=== PATIENT | male | born 1940 | race Caucasian/White ===

== ENCOUNTER 2020-03-25 16:24 | Outpatient (REF) | payer OTHER, SELFPAY ==
[2020-03-25 21:46] LABS: TSH 2.05 uIU/mL (0.36-3.74)
== END 2020-03-25 16:44 ==
LOC: LBN 16:24
PROVIDERS: PCP Emergency Medicine; Visit Provider Emergency Medicine
DX: E03.9 Hypothyroidism, unspecified (principal)
CPT/HCPCS: 84443

== ENCOUNTER 2022-01-13 03:19 | Outpatient (CLI) | payer MEDICARE, SELFPAY ==
[2022-01-13 12:48] LABS: Anion Gap 5.1 mmol/L (3-11); BUN 17 mg/dL (7-18); CO2 29.9 mmol/L (21.0-32.0); CREATININE 0.9 mg/dL (0.70-1.30); Calcium 8.6 mg/dL (8.5-10.1); Chloride 107 mmol/L (98-107); Estimated GFR 85.27 (mL/min/1.73m2); Glucose 104 mg/dL (74-106); Sodium 142 mmol/L (136-145)
[2022-01-13 13:05] LABS: FREE T4 0.79 ng/dL (0.76-1.46)
== END 2022-01-13 03:20 | disposition home or self-care (01) ==
LOC: LOS 03:19
PROVIDERS: PCP Family Medicine; Visit Provider Family Medicine
DX: E03.9 Hypothyroidism, unspecified (principal); I49.5 Sick sinus syndrome
CPT/HCPCS: 36415; 80048; 84439; 84443

== ENCOUNTER 2022-09-08 19:29 | Emergency (ER) | payer MEDICARE, SELFPAY ==
[2022-09-08 19:33] VITALS: BP 150/77; PULSE 108; RESP 16; TEMP 37.8; O2SAT 96
--- NOTE | 2022-09-08 19:33 | ED.GENADUL_ITS ---
Discharge Plan Disposition Patient Disposition: Home Discharge Details Clinical Impression: Community acquired pneumonia, Hypocalcemia, Prolonged QT interval Primary Care Provider: Zachary Montgomery ED Provider: Tavo Gould [place] Meds and New Rx's Prescriptions: New amoxicillin-pot clavulanate 875-125 mg tablet 1 tab PO BID 7 Days Qty: 14 0RF Continued benzonatate 100 mg capsule 100 mg PO TID PRN (Reason: cough) 7 Days Qty: 20 0RF levothyroxine [Levo-T] 75 mcg tablet 75 mcg PO DAILY Qty: 90 3RF Discharge Instructions Instructions: Community Acquired Pneumonia (ED) Additional Instructions: Please read all of the information that accompanies these instructions. You wer e seen in the emergency department for your cough and shortness of breath. You are found to have signs of an early pneumonia for which you are receiving antibiotics that you should take as directed. Please schedule an appointment with your primary care provider later this week. Please return to the emergency department if develop worsening shortness of breath chest pain or any difficulty breathing. Discharge Data Discharge Date/Time-TO BE ENTERED AT DEPARTURE: 09/08/22 22:43 Medical Decision Making This is an overall very well-appearing tachycardic but normothermic and not hypotensive 81-year-old male with 2-week history of cough and fevers at home with presentation concerning for sepsis. Given tachycardia will obtain 2 sets of blood cultures, check a lactate, and treat empirically with 2 g of ceftriaxone. I am not concerned for MRSA so will defer vancomycin at this point time. Patient is not a smoker and has no history of reactive airway disease nor COPD so we will defer steroids. Patient is not an alcoholic nor does he have a history of cirrhosis. Patient has had no lower extremity swelling nor unintentional weight gain brayan history of CHF so I am not concerned for acute CHF. He has no chest pain to suggest ACS however based on his tachycardia and history of atrial fibrillation will obtain a twelve-lead ECG. Suspect that his tachycardia is driven by his elevated normal temperature. We will treat with 500 cc of crystalloid and 1 g of oral acetaminophen. No pain out of proportion to suggest necrotizing soft tissue infection. If labs are reassuring anticipate patient will be appropriate for discharge with outpatient follow-up. He has no obviously abnormal breath sounds to suggest bacterial pneumonia. Based on his overall well appearance he certainly could have a viral pneumonia. He was swabbed last week for COVID which was negative. We will reswab now. No dysuria nor frequency to suggest UTI. No history of trauma to suggest pneumothorax. 10:15 PM COVID, influenza, and RSV negative. Basic metabolic panel with very mild anion gap. Normal creatinine. Very mild hyperglycemia but normal bicarbonate, not consistent with DKA. Very mild hypocalcemia. QTc prolonged at 500 ms. Normal lactate. CBC showing leukocytosis and normocytic anemia. No thrombocytopenia. X-ray read as possible left basilar opacity. We will treat with amoxicillin clavulanic acid. Patient has a port score of 82 making him appropriate for outpatient. He is eager for discharge. I have asked health community director to have the patient seen in the next 2 days for reassessment by his primary care provider in the setting of community-acquired pneumonia. Repeat heart rate 88. His QTc was prolonged on ECG and I repleted his very mild hypocalcemia. He was not hypokalemic. Given that he is tolerating p.o. and not on any outpatient diuretics which could make him at risk for hypokalementia I feels appropriate for discharge. Furthermore he is not on any medications which could prolong his QT. Has not had any syncopal episodes to suggest torsades. He had no dysrhythmias on telemetry in the ED. I did not prescribe a fluoroquinolone given prolonged QT. 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 History obtained from an outside historian: Patient's External record review: [facility] [place] EMR Diagnostic interpretations performed by me: [Per my independent interpretation chest x-ray shows:] question LLQ infilitrate Per my independent interpretation EKG shows: Normal sinus rhythm at a rate of 96 with right bundle branch block and left anterior fascicular block. No prior for comparison. QTc prolonged at 500 ms. Left axis deviation. No acute injury pattern. No prior for comparison. Medications: Ceftriaxone and acetaminophen and IV fluids. Social determinants of health affecting disposition: N/A Management discussed with: N/A Treatment/interventions considered: Hospitalization but deferred in favor of an empiric trial of expectant outpatient managment Response to therapies provided: Tanana improved in the ED HPI General Date/Time Provider Initiated Documentation: 09/08/22 19:32 . HPI Narrative: This is an 81-year-old male with a history of aortic stenosis and WPW now in the emergency department in the setting of cough and fever. Patient reportedly has had a cough for the past 2 weeks since traveling and visiting family domestically. He was seen 5 days ago at urgent care where he was swabbed negative for COVID. He was given a prescription for Mucinex and discharged. He says his cough is dry and nonproductive. This afternoon he developed a fever up to 102 ?F. He is not a smoker. He has no history of liver disease nor daily alcohol use. He has had no unintentional weight gain nor any leg swelling. He has a PCP follow-up appointment next week. He is not having chest pain nausea vomiting abdominal pain dysuria nor frequency. Related Data Home Medications Medication Instructions Recorded Confirmed levothyroxine 75 mcg tablet 75 mcg PO DAILY #90 tabs 06/29/22 09/08/22 (Levo-T) benzonatate 100 mg capsule 100 mg PO TID PRN cough 7 days #20 09/04/22 09/08/22 caps amoxicillin 875 mg-potassium 1 tab PO BID 7 days #14 tabs 09/08/22 clavulanate 125 mg tablet Previous Rx's Medication Instructions Recorded levothyroxine 75 mcg tablet 75 mcg PO DAILY #90 tabs 06/29/22 (Levo-T) benzonatate 100 mg capsule 100 mg PO TID PRN cough 7 days #20 09/04/22 caps amoxicillin 875 mg-potassium 1 tab PO BID 7 days #14 tabs 09/08/22 clavulanate 125 mg tablet Allergies Allergy/AdvReac Type Severity Reaction Status Date / Time No Known Allergies Allergy Verified 09/08/22 19:38 [facility] All Active Problems (Updated 09/09/22 @ 00:14 by Tavo Gould MD) Community acquired pneumonia (Acute) Hypocalcemia (Acute) Prolonged QT interval (Acute) Aortic stenosis (Chronic) Moderate, followed by cardiology at [place]-echocardiogram at [place] results not available SVT (supraventricular tachycardia) (Chronic) History of recurrent very brief, otherwise asymptomatic episodes, not requiring treatment-followed by cardiology-[facility] BCC (basal cell carcinoma of skin) (Acute) 2017-scalp, status post Mohs surgery at [facility] per patient Mcfvw-Ypeifzvui-Zythm pattern (Acute 01/28/92) Remote history noted on cardiology notes Tubular adenoma of colon (Acute 03/15/16) 2017 Retention of urine (Acute 01/27/05) self-caths Recurrent urinary tract infection (Acute) Raised prostate specific antigen (Acute 01/28/00) BX-prostatitis Lipoma of back (Acute 08/14/14) Large lipoma, left thoracic back about 10 cm in size Hypothyroidism (Acute 08/14/14) Hydrocele (Acute) Hearing loss (Acute) Basal cell carcinoma (BCC) in situ of skin (Acute 07/06/17) Atrial fibrillation (Acute 08/14/14) Actinic keratosis (Acute) Medical History Family history of malignant neoplasm of prostate Surgical History Colonoscopy - MAC (03/15/16) 2000 IMPROVEMENT NURSE ID (11/20/13) SERIAL# [id number]; MODEL# [id number] Prostate Biopsy (~2000) Repair of inguinal hernia (~2009) LEFT Family History Mother No problems noted. Father Personal history of malignant neoplasm Sister No problems noted. Brother No problems noted. FAMILY HISTORY AA (alcohol abuse) Personal history of malignant neoplasm prostate Social History Smoking/Tobacco Use Status: Former Tobacco Use tobacco type: cigarettes and pipe Second Hand Exposure: Yes Smoking risk assessment performed?: Yes Alcohol Intake: current Alcohol Intake frequency: a few times a week Alcohol type: beer Drug use: Socially Caregiver/Support person: No Household members: spouse Housing: house Communication Needs: Hard of Hearing Do you need help understanding health information?: Rarely Pets and animals: Yes Pets and animals: dog(s) Sexually active: Yes Do you think of yourself as: straight/heterosexual Current gender identity: male What is your relationship status?: How often do you talk on the phone with friends or family?: three or more times per week How often do you get together with friends or relatives?: once per week How often do you attend quaker or denominational services?: 1-3 times per year Do you belong to any clubs or organized social groups?: no Panel score (0-1 are the most socially isolated patients): 2 What type of physical activity do you participate in: aerobic and other Details: Tennis,pickleball, golfing,biking Duration: 45-60 minutes/day Frequency: 1-2 times per week Luci/Synagogue: No preference Special luci needs: No Seatbelt use: always Helmet use: Yes Helmet use: sometimes Drive intox or ride w/intox armored car driver: No Exam Narrative Exam Narrative: General: Well-appearing in no acute distress speaking in complete sentences. Head: Normocephalic, atraumatic. Eye: Extraocular eye movements intact. No conjunctival injection. No scleral icterus. Ear, nose, mouth, throat: Grossly normal inspection. Normal voice, handling secretions normally. Neck: Trachea midline. Cardiovascular: Well-perfused distal extremities.Rapid regular rate and rhythm. Respiratory: Nonlabored respiration. Clear lungs bilaterally. Gastrointestinal: Nondistended abdomen. Musculoskeletal: No significant lower extremity pitting edema. Moving all 4 extremities spontaneously. Skin: Normal for age and race, grossly normal temperature and turgor. No acute rash. Neurologic: Alert and appropriate, no apparent acute deficits. Psychiatric: Mood and manner are appropriate. Grooming and personal hygiene are appropriate.
--- NOTE | 2022-09-08 19:45 | RT.EKG_ITS ---
APPROVED REPORT Exam: Resting ECG Reason for Exam: Tachycardia Patient Location: E HR:96 bpm ECG Measurements Heart Rate 96 AXIS LA 191 P 84 QRSd 146 QRS -60 QT 395 T 62 QTc 500 Conclusion Sinus rhythm...normal P axis, V-rate 60- 99 RBBB and LAFB...QRSd >120mS, axis(-40,240) Probable left ventricular hypertrophy...(RaVL+SV3)xQRSd >280 Normal sinus rhythm at a rate of 96 with right bundle branch block and left anterior fascicular block . No prior for comparison. QTc prolonged at 500 ms. Left axis deviation. No acute injury pattern. No prior for rebecca
[2022-09-08 20:08] LABS: Lactate 0.8 mmol/L (0.6-1.4)
[2022-09-08 20:09] LABS: Abs Immature Grans 0.06 10^3/uL (0.0-0.06); Absolute Lymphocyte Count 2.24 10^3/uL (1.2-3.4); Basophils % 0.1; Eosinophils % 0.6; HCT 35.9 % (40.0-50.0); HGB 12.4 g/dL (13.5-17.5); Immature Grans % 0.4; Lymphocytes % 15.6; MCH 28.6 pg (27.0-33.0); MCHC 34.5 % (32.0-36.0); MCV 83 fL (80-95); MPV 10.3 fL (8.0-11.0); Monocytes % 5.6; Neutrophils % 77.7; Platelet Count 153 10^3/uL (130-400); RBC 4.34 10^6/uL (4.36-5.78); RDW 12.5 % (11.8-14.1); RDW-SD 38.3 fL; WBC 14.37 10^3/uL (4.4-10.8)
[2022-09-08 20:10] LABS: Absolute Basophil Count 0.01 10^3/uL (0.0-0.2); Absolute Eosinophil Count 0.09 10^3/uL (0.0-0.7); Absolute Neutrophil Count 11.17 10^3/uL (1.2-6.7)
[2022-09-08] MEDS: cefTRIAXone 2 GM/50 ML BAG IVPB (20:12)
[2022-09-08] MEDS: Acetaminophen 500 MG TAB 1000 MG PO (20:13)
[2022-09-08] MEDS: Normal Saline 500 ML IV (20:14)
[2022-09-08 20:25] LABS: Anion Gap 11.2 mmol/L (3-11); BUN 17 mg/dL (7-18); CO2 22.8 mmol/L (21.0-32.0); CREATININE 0.9 mg/dL (0.70-1.30); Calcium 8.2 mg/dL (8.5-10.1); Chloride 103 mmol/L (98-107); Estimated GFR 85.27 (mL/min/1.73m2); Glucose 119 mg/dL (74-106); Potassium 3.7 mmol/L (3.5-5.1); Sodium 137 mmol/L (136-145)
[2022-09-08 20:48] LABS: COVID-19 PCR Negative (Negative); Influenza A PCR Negative (Negative); Influenza B PCR Negative (Negative); RSV PCR Negative (Negative)
[2022-09-08 20:50] LABS: Source Nasopharynx
--- NOTE | 2022-09-08 21:00 | DI.RAD_ITS ---
Exam(s) XR CHEST 2V PA LATERAL EXAM: XR CHEST 2V PA LATERAL CLINICAL HISTORY: Cough. TECHNIQUE: 2D digital imaging was performed. COMPARISON: No exams were available for comparison FINDINGS: 2 views: Anterior left chest wall cardiac loop detector evident Mild pectus. Heart size upper normal. Mediastinum not widened. Right lung is clear. Mild increased markings noted in the posterior basal segment of the left lower lobe. No pleural effusions. No pulmonary edema. No pneumothorax. No fractures. IMPRESSION: There appears to be mild infiltrate in the posterior basal segment of the left lower lobe. No obviou s pleural effusions. DATA REPOSITORY: RADIATION DOSE DELIVERED:
--- NOTE | 2022-09-08 21:33 | DI.VRAD_ITS ---
PROCEDURE INFORMATION: Exam: XR Chest Exam date and time: 09/08/2022 9:21 PM Age: 81 years old Clinical indication: Cough TECHNIQUE: Imaging protocol: Radiologic exam of the chest. Views: 2 views. COMPARISON: No relevant prior studies available. FINDINGS: Lungs: Question mild left basilar opacity. Pleural spaces: No pleural effusion. No pneumothorax. Heart/Mediastinum: Tortuous aorta. No cardiomegaly. Bones/joints: Unremarkable. IMPRESSION: Question mild left basilar opacity which may represent subsegmental atelectasis versus developing pneumonia Dictated and Authenticated by: Rachid De Los Santos MD. Ordering:SHEILA Vo MD
[2022-09-08 22:43] VITALS: PULSE 88; O2SAT 96
--- NOTE | 2022-09-08 22:53 | NUR.NOTE ---
Pt put on care management for reassess for pneumonia within 1-2 days per ED provider Mary Ann Nursing Note:
== END 2022-09-08 22:43 | disposition home or self-care (01) ==
PROVIDERS: Emergency Provider Emergency Medicine; PCP Family Medicine
DX: J18.9 Pneumonia, unspecified organism (principal); E83.51 Hypocalcemia; I35.0 Nonrheumatic aortic (valve) stenosis; I45.19 Other right bundle-branch block; I44.4 Left anterior fascicular block; Z79.899 Other long term (current) drug therapy
CPT/HCPCS: 80048; 87040; 87637; 93005; 96365; 99284; 71046; 83605; 85025; 93010; 99283

== ENCOUNTER 2022-11-17 03:47 | Outpatient (CLI) | payer MEDICARE, SELFPAY ==
[2022-11-17 12:46] LABS: TSH (W/Ref FT4) 2.85 uIU/mL (0.36-3.74)
== END 2022-11-17 03:48 | disposition home or self-care (01) ==
LOC: LOS 03:47
PROVIDERS: PCP Family Medicine; Visit Provider Family Medicine
DX: E03.9 Hypothyroidism, unspecified (principal)
CPT/HCPCS: 36415; 84443

== ENCOUNTER 2023-09-20 09:56 | Outpatient (CLI) | payer MEDICARE, SELFPAY ==
[2023-09-20 13:34] LABS: FREE T4 0.88 ng/dL (0.76-1.46)
[2023-09-20 19:37] LABS: HIV-1/2 Ag & Ab Screen Negative (Negative); Hepatitis C Ab w Rflx HCV PCR Negative (Negative)
[2023-09-20 19:39] LABS: HBs Antibody, Quant <3.1 mIU/mL (See Note); Hep B Surface Ab Negative (See Note); Hepatitis B Core Antibody Negative (Negative); Hepatitis B Surface Antigen Negative (Negative)
== END 2023-09-20 09:57 | disposition home or self-care (01) ==
LOC: LOS 09:56
PROVIDERS: PCP Family Medicine; Visit Provider Family Medicine
DX: Z11.59 Encounter for screening for other viral diseases (principal); Z00.00 Encounter for general adult medical examination without abnormal findings; E03.9 Hypothyroidism, unspecified
CPT/HCPCS: 36415; 86704; 86706; 86803; 87340; 87389; 84439; 84443

== ENCOUNTER 2024-09-20 10:43 | Outpatient (CLI) | payer MEDICARE, SELFPAY ==
[2024-09-20 12:27] LABS: Abs Immature Grans 0.02 10^3/uL (0.0-0.06); HCT 40.0 % (40.0-50.0); HGB 13.3 g/dL (13.5-17.5); Immature Grans % 0.2 %; MCH 29.1 pg (27.0-33.0); MCHC 33.3 % (32.0-36.0); MCV 88 fL (80-95); MPV 11.2 fL (8.0-11.0); Platelet Count 154 10^3/uL (130-400); RBC 4.57 10^6/uL (4.36-5.78); RDW 13.4 % (11.8-14.1); RDW-SD 42.5 fL; WBC 8.13 10^3/uL (4.4-10.8)
[2024-09-20 12:49] LABS: TSH (W/Ref FT4) 1.56 uIU/mL (0.36-3.74)
== END 2024-09-20 10:44 | disposition home or self-care (01) ==
LOC: LOS 10:43
PROVIDERS: PCP Family Medicine; Referring Provider Family Medicine; Visit Provider Family Medicine
DX: E03.9 Hypothyroidism, unspecified (principal); D64.9 Anemia, unspecified
CPT/HCPCS: 36415; 84443; 85025

== ENCOUNTER 2025-01-03 11:12 | Emergency (ER) | payer MEDICARE, SELFPAY ==
[2025-01-03 11:17] VITALS: BP 179/94; PULSE 56; RESP 20; TEMP 36.5; O2SAT 96
[2025-01-03 11:21] VITALS: BP 179/94; PULSE 56; RESP 20; TEMP 36.5; O2SAT 96
[2025-01-03] MEDS: fentaNYL 100 MCG/2 ML VIAL 50 MCG IVP (11:57)
[2025-01-03 12:03] LABS: Abs Immature Grans 0.02 10^3/uL (0.0-0.06); HCT 42.9 % (40.0-50.0); HGB 14.3 g/dL (13.5-17.5); Immature Grans % 0.2 %; MCH 28.6 pg (27.0-33.0); MCHC 33.3 % (32.0-36.0); MCV 86 fL (80-95); MPV 10.9 fL (8.0-11.0); Platelet Count 146 10^3/uL (130-400); RBC 5.00 10^6/uL (4.36-5.78); RDW 13.5 % (11.8-14.1); RDW-SD 42.0 fL; WBC 8.55 10^3/uL (4.4-10.8)
[2025-01-03 12:12] LABS: Lipase 37 U/L (<78)
[2025-01-03 12:16] LABS: ALT 25 U/L (16-63); AST 22 U/L (15-37); Albumin 3.9 g/dL (3.4-5.0); Alkaline Phosphatase 85 U/L (46-116); Anion Gap 6.3 mmol/L (3-11); BUN 14 mg/dL (7-18); Bilirubin, Total 0.7 mg/dL (0.2-1.0); CO2 30.7 mmol/L (21.0-32.0); Calcium 9.3 mg/dL (8.5-10.1); Chloride 106 mmol/L (98-107); Glucose 95 mg/dL (74-106); Potassium 4.2 mmol/L (3.5-5.1); Sodium 143 mmol/L (136-145); Total Protein 7.1 g/dL (6.4-8.2)
[2025-01-03 12:27] LABS: Glucose Negative (Negative)
[2025-01-03 12:33] LABS: C & S Indicated? No; RBC Negative HPF (0-2)
--- NOTE | 2025-01-03 13:30 | DI.US_ITS ---
Exam(s) US HERNIA EXAM: US HERNIA CLINICAL HISTORY: inguinal hernia, post reduction. TECHNIQUE: Ultrasound was performed using standard protocol. COMPARISON: No exams were available for comparison FINDINGS: Sonographic assessment utilizing grayscale and color Doppler imaging was performed and targeted to the area of clinical concern. There is a right inguinal hernia present. It appears to contain both fluid and bowel loops. The hernia sac measures 4.5 x 1.4 x 3.8 cm. IMPRESSION: Right inguinal hernia containing both fluid in bowel loops. DATA REPOSITORY:
--- NOTE | 2025-01-03 15:18 | W.ED.GENAD ---
Discharge Plan Disposition Patient Disposition: Home Condition: Stable Discharge Details Clinical Impression: Inguinal hernia Primary Care Provider: Zachary Montgomery ED Provider: France Reese Home Meds and New Rx's Prescriptions: Continued levothyroxine [Levo-T] 75 mcg tablet 75 mcg PO DAILY Qty: 90 3RF Discharge Instructions Instructions: Hernia Repair (DC), Groin Hernia (DC) Additional Instructions: avoid any heavy lifting or straining avoid constipation please follow-up with surgery regarding your hernia, a referral has been placed if you develop reoccurrence of painful hernia, you may try to reduce at home and return immediately if you are unsuccessful Stand Alone Forms: Portal Information Referrals: Long Maldonado MD [ [facility] STAFF PHYSICIAN, Surgery] HPI General Date/Time Provider Initiated Documentation: 01/03/25 11:32. HPI Narrative: This 84-year-old gentleman with history of WPW SVT aortic stenosis hypothyroidism presents with report of right pelvic pain. He states that the pain started this morning when he got out of bed. He has a history of an inguinal hernia on the right and also has a previously repaired left inguinal hernia. The right inguinal hernia has Related Data Home Medications Medication Instructions Recorded Confirmed levothyroxine 75 mcg tablet 75 mcg PO DAILY #90 tabs 09/05/24 01/03/25 (Levo-T) Previous Rx's Medication Instructions Recorded levothyroxine 75 mcg tablet 75 mcg PO DAILY #90 tabs 09/05/24 (Levo-T) Allergies Allergy/AdvReac Type Severity Reaction Status Date / Time No Known Allergies Allergy Verified 01/03/25 11:23 General Stated Complaint: Abd Prob BRUCE: 3 Exam Narrative Exam Narrative: 84-year-old male in no acute distress mass noted and right inguinal region no cyanosis or erythema noted exquisitely tender no abdominal tenderness no flank tenderness alert and oriented x 4, distal pulses intact, no abdominal bruit or pulsatile mass Course Vital Signs Vital signs: Vital Signs Temperature 36.5 C 01/03/25 11:17 Pulse 56 L 01/03/25 11:17 Respiratory Rate 20 01/03/25 11:17 Blood Pressure 179/94 H 01/03/25 11:17 Pulse Oximetry 96 01/03/25 11:17 Temperature 36.5 C 01/03/25 11:21 Pulse 56 L 01/03/25 11:21 Respiratory Rate 20 01/03/25 11:21 Blood Pressure 179/94 H 01/03/25 11:21 Blood Pressure Position Sitting 01/03/25 11:21 Pulse Oximetry 96 01/03/25 11:21 Oxygen Delivery Method Room Air 01/03/25 11:21 Oxygen Flow Rate 0 01/03/25 11:21 Lab/Test Results Lab/Test Results: Laboratory Tests Range/Units 01/03/25 01/03/25 11:51 11:57 WBC (4.4-10.8) 10^3/uL 8.55 RBC (4.36-5.78) 10^6/uL 5.00 Hgb (13.5-17.5) g/dL 14.3 Hct (40.0-50.0) % 42.9 MCV (80-95) fL 86 MCH (27.0-33.0) pg 28.6 MCHC (32.0-36.0) % 33.3 RDW (11.8-14.1) % 13.5 Plt Count (130-400) 10^3/uL 146 MPV (8.0-11.0) fL 10.9 Immature Gran % % 0.2 Neutrophils % % 47.3 Lymphocytes % % 44.1 Monocytes % % 5.1 Eosinophils % % 2.8 Basophils % % 0.5 Nucleated RBC % (0.0-0.3) % 0.0 Absolute Neutrophils (1.2-6.7) 10^3/uL 4.04 Absolute Lymphocytes (1.2-3.4) 10^3/uL 3.77 H Absolute Monocytes (0.1-0.8) 10^3/uL 0.44 Absolute Eosinophils (0.0-0.7) 10^3/uL 0.24 Absolute Basophils (0.0-0.2) 10^3/uL 0.04 Sodium (136-145) mmol/L 143 Potassium (3.5-5.1) mmol/L 4.2 Chloride (98-107) mmol/L 106 Carbon Dioxide (21.0-32.0) mmol/L 30.7 Anion Gap (3-11) mmol/L 6.3 BUN (7-18) mg/dL 14 Creatinine (0.70-1.30) mg/dL 0.9 Est GFR (CKD-EPI 2021) (mL/min/1.73m2) 83.70 Glucose (74-106) mg/dL 95 Calcium (8.5-10.1) mg/dL 9.3 Total Bilirubin (0.2-1.0) mg/dL 0.7 AST (15-37) U/L 22 ALT (16-63) U/L 25 Alkaline Phosphatase (46-116) U/L 85 Total Protein (6.4-8.2) g/dL 7.1 Albumin (3.4-5.0) g/dL 3.9 Lipase (<78) U/L 37 Urine Color (Yellow) Yellow Urine Clarity (Clear) Cloudy Urine pH (5-8) 6.0 Ur Specific [place] (1.005-1.025) 1.020 Urine Protein (Neg-Trace) mg/dL Negative Urine Ketones (Negative) mg/dL Trace H Urine Blood (Negative) Negative Urine Nitrite (Negative) Positive H Urine Bilirubin (Negative) Negative Urine Urobilinogen (Up to 0.2) mg/dL 0.2 Ur Leukocyte Esterase (Negative) Negative Urine RBC (0-2) HPF Negative Urine WBC (0-5) HPF 3-5 Ur Epithelial Cells (Negative) HPF Rare Urine Crystals (Negative) HPF Negative Urine Bacteria (Negative) HPF Moderate Urine Casts (Negative) LPF Negative Urine Mucus (Negative) Moderate Ur Culture Indicated? No Urine Glucose (Negative) mg/dL Negative Medical Decision Making Results: Patient with inguinal hernia with bowel on ultrasound, diagnostic labs do not show acute abnormality Assessment and plan: I gave patient 50 mcg of fentanyl placed patient in Trendelenburg and placed ice over the hernia, I was able to reduce the hernia and patient on reassessment was pain-free. Patient has a small mass that still present but is completely nontender and the area over the inguinal hernia is soft. Abdominal tenderness and patient is requesting discharge home. Patient will follow-up with Dr. Maldonado, case discussed with surgery and he will be referred in the outpatient setting. Patient was given precautions for lifting and constipation and low threshold to return with worsening or worsening complaints Quality:SDOH Health Related Social Needs: Health related social needs risk of homeless PFSH All Active Problems (Updated 01/03/25 @ 15:09 by LILA Tillman) Inguinal hernia (Acute) GERD (gastroesophageal reflux disease) (Chronic) Aortic stenosis (Chronic) Moderate, followed by cardiology at [place]-echocardiogram at [place] results not available SVT (supraventricular tachycardia) (Chronic) History of recurrent very brief, otherwise asymptomatic episodes, not requiring treatment-followed by cardiology-[facility] BCC (basal cell carcinoma of skin) (Acute) 2017-scalp, status post Mohs surgery at [facility] per patient Avxai-Relsmwsad-Wiqbj pattern (Acute 01/28/92) Remote history noted on cardiology notes Tubular adenoma of colon (Acute 03/15/16) 2017 Retention of urine (Acute 01/27/05) self-caths Recurrent urinary tract infection (Acute) Raised prostate specific antigen (Acute 01/28/00) BX-prostatitis Lipoma of back (Acute 08/14/14) Large lipoma, left thoracic back about 10 cm in size Hypothyroidism (Acute 08/14/14) Hydrocele (Acute) Hearing loss (Acute) Basal cell carcinoma (BCC) in situ of skin (Acute 07/06/17) Atrial fibrillation (Acute 08/14/14) Actinic keratosis (Acute) Medical History Family history of malignant neoplasm of prostate Surgical History Prostate Biopsy (~2000) MAILROOM MESSENGER ID (11/20/13) SERIAL# [id number]; MODEL# [id number] Repair of inguinal hernia (~2009) LEFT Colonoscopy - MAC (03/15/16) 2000 Family History Mother No problems noted. Father Personal history of malignant neoplasm Sister No problems noted. Brother No problems noted. FAMILY HISTORY AA (alcohol abuse) Personal history of malignant neoplasm prostate Social History (Updated 09/25/24 @ 15:45 by Dahlia Durbin) Smoking/Tobacco Use Status: Former Tobacco Use tobacco type: cigarettes Quit Date: 02/28/1963 Tobacco: How many years used: 4 Second Hand Exposure: No Smoking risk assessment performed?: Yes Alcohol Intake: current Alcohol Intake frequency: a few times a week Alcohol type: beer and wine Drug use: Never Substance use type: does not use Counseling given: No Adopted: No Caregiver/Support person: No Household members: spouse Housing: house Number of Children: 0 number of grandchildren: 0 Communication Needs: Hard of Hearing Education Level: college Details: B.S. Do you need help understanding health information?: Never current occupation: Retired Pets and animals: Yes Pets and animals: dog(s) Sexually active: Yes Do you think of yourself as: straight/heterosexual Current gender identity: male What is your relationship status?: How often do you talk on the phone with friends or family?: twice per week How often do you get together with friends or relatives?: once per week How often do you attend methodist or yazidism services?: 1-3 times per year Do you belong to any clubs or organized social groups?: no Panel score (0-1 are the most socially isolated patients): 2 What type of physical activity do you participate in: bicycling and other Details: Tennis,pickleball, golfing Duration: 30-45 minutes/day Frequency: 3-4 times per week Special shorty needs: No Agree to transfusion: Yes Seatbelt use: always Helmet use: Yes Helmet use: sometimes 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: No Working smoke detector in home: Yes Carbon monox detector in home: Yes Firearms in home: No Do you feel safe at home: Yes Do you feel safe in your relationship?: Yes Victim of physical abuse: No Victim of emotional abuse: No Victim of sexual abuse: No Would you like helpful sources: No PAWSS Have you Been Recently Intoxicated or Drunk Within the Last 30 days?: No Have you Ever Experienced Previous Episodes of Alcohol Withdrawal?: No Have you ever Experienced Withdrawal Seizures?: No Have you ever Experienced Delirium Tremens(DT)s?: No Have you ever undergone Alcohol Rehabilitation Treatment (i.e, inpt ot outpatient treatment programs)?: No Have you ever Experienced Blackouts?: No Have you ever Combined Alcohol with other Downers within the last 90 days?: No Have you ever Combined Alcohol with any other Substance of Abuse during the last 90 days?: No Positive Blood Alcohol level on Presentation? [PCS.BAL]: No Evidence of Increased Autonomic Activity (i.e. HR>120, tremor, sweating, agitation, nausea)?: No Result: 0
== END 2025-01-03 15:31 | disposition home or self-care (01) ==
PROVIDERS: Emergency Provider Physician Assistant; PCP Family Medicine
DX: K40.90 Unilateral inguinal hernia, without obstruction or gangrene, not specified as recurrent (principal)
CPT/HCPCS: 99284 ×2; 36415; 96374; 76857; 80053; 83690; 81003; 81015; 85025; J3010

== ENCOUNTER → 2025-01-08 08:48 | Outpatient (BNVA) | payer MEDICARE, SELFPAY | PROVIDERS: PCP Family Medicine; Referring Provider Family Medicine; Visit Provider Student in an Organized Health Care Education/Training Program | DX: K40.90 Unilateral inguinal hernia, without obstruction or gangrene, not specified as recurrent (principal) | CPT/HCPCS: 99213 ==

== ENCOUNTER → 2025-01-15 02:01 | Outpatient (CLI) | payer MEDICARE, SELFPAY ==
--- NOTE | 2025-01-15 06:30 | DI.US_ITS ---
APPROVED REPORT EXAM: Comprehensive 2D, Doppler, and color-flow Echocardiogram Patient Location: Out-Patient Records Management Analyst: Sybil Yarbrough RDCS (AE) Indications: Evaluate aortic stenosis, EF Other Information Study Quality: Adequate Conclusion Normal left ventricular wall thickness and chamber size. Ejection fraction is 55 to 60%. Wall motion is normal Normal right ventricular size and function Both atria are mildly enlarged The aortic valve is calcified. There is severe aortic stenosis. Peak gradient is 82, mean 56 mmHg. Calculated aortic valve area is 0.6 cm??. There is mild aortic regurgitation Mild mitral and tricuspid regurgitation. Estimated right ventricular systolic pressure is 23 mmHg Ascending aorta measures 3.62 cm Wall motion Left Ventricle The left ventricle is normal size. The left ventricular systolic function is normal. The left ventricular ejection fraction is within the normal range. There is normal left ventricular wall thickness. There is normal LV segmental wall motion. There is no ventricular septal defect visualized. LVEF is 57%. Right Ventricle The right ventricle is normal size. The right ventricular systolic function is normal. Atria Left atrium is mildly dilated. Right atrium is mildly dilated. The interatrial septum is intact with no evidence for an atrial septal defect. Aortic Valve Aortic valve is calcified. Number of aortic valve leaflets could not be assessed. Severe aortic stenosis. Peak aortic valve gradient is 82.17mmHg. Highest mean aortic valve gradient is 55.91_mmHg. Calculated BABS by the continuity equation is .6cm2. Mild aortic regurgitation. Mitral Valve Mild mitral annular calcification. No evidence of mitral valve stenosis. Mild mitral regurgitation. Tricuspid Valve The tricuspid valve is normal in structure. There is no tricuspid valve stenosis. Mild tricuspid regurgitation. The RVSP is 23.3mmHg. Pulmonic Valve The pulmonary valve is normal in structure. There is no pulmonic valvular stenosis. There is no pulmonic valvular regurgitation. Great Vessels The aortic root is normal in size. The ascending aorta is mildly dilated. Aortic arch is not well visualized. IVC is normal in size and collapses >50% with inspiration. Pericardium There is no pericardial effusion. 2D Dimensions IVSD d PLAX 0.90 cm M: 0.6-1.2 Ao Root d 3.20 cm M: 3.1 - 3.7 LVPW d PLAX 0.92 cm M: 0.6 - 1.2 Ao Asc Diam d 3.62 cm M: 2.6 - 3.4 LVID d PLAX 5.10 cm M: 4.2 - 5.8 LVDs 3.70 cm M: 2.5 - 4.0 LV EF Teichholz 54.5 % FS 28.41 % LV EDV (Teich) 123.9 mL LV ESV (Teich) 56.3 mL M-Mode TAPSE 1.90 cm (M/F) >1.7 Auto EF LV EDV A4C 150.1 mL LV EDV A2C 186.2 mL LV EDV BP 170.6 mL LV ESV A4C 63.0 mL LV ESV A2C 80.3 mL LV ESV BP 72.8 mL LVEF(%) A4C 58.0 % LVEF(%) A2C 56.9 % LVEF(%) BP 57.4 % LV SV A4C 87.1 ml LV SV A2C 105.8 ml LV SV BP 97.8 ml LV CO A4C 5.2 L/min LV CO A2C 6.1 L/min LV CO BP 5.6 L/min HR A4C 60.00 BPM HR A2C 57.31 BPM LV EDV Index (BP) LA Volume LA Length A4C 5.0 cm LA Length A2C 5.2 cm LA Area A4C s 17.28 cm2 LA Area A2C s 22.80 cm2 LA Vol A4C A-L 50.73 mL LA Vol A2C A-L 84.03 mL LA Vol Biplane A-L 66.9 mL LA Vol/BSA A4C A-L LA Vol/BSA A2C A-L LA Vol/BSA BP A-L 35.8 mL/m2 LA Vol A4C MOD 48.1 mL LA Vol A2C MOD 79.0 mL LA Vol BP MOD 62.9 mL RA Volume RA Area A4C 15.9 cm2 RA ESV A4C (A-L) 46.3mL RA Vol/BSA A4C A-L RA Length A4C 4.6 cm RA ESV A4C (MOD) 43.6mL LV Diastology MV E' medial 0.051 (>0.07 m/s) MV E Vmax 0.75 (0.4-1.3 m/s) MV E/E' MED 14.70 (<14) MV A Vmax 1.10 (0.4-1.3 m/s) MV E' lateral 0.045 (>0.1 m/s) E/A Ratio 0.7 MV E/E' LAT 16.44 (<14) MV E' Average 0.048 m/s MV E/E'(average) 15.52 Aortic Valve AoV Vmax 4.53 m/s LVOT Vmax 0.85 m/s AoV Peak Grad 77.1 mmHg LVOT Peak Grad 2.9 mmHg AoV Area (Vmax) 0.56 cm2 LVOT VTI 0.241 m AoV VTI 1.191 m LVOT Mean Grad 1.5 mmHg AoV Mean Karlos. 3.60 m/s LVOT SV 71.92 mL AoV Mean Grad 55.9 mmHg LVOT Diam s 1.95 cm AoV Area (VTI) 0.60 cm2 AV Regurg Peak Gr. 82.17 mmHg Velocity Ratio 0.19 AR Decel [place] 1.5m/sec2 AR DT 3079 msec AR PHT 893 msec AR Vmax 4.23 m/s Mitral Valve MV DT 312 (160-240 msec) MV Vmax TIPS 1.02 m/s MV Mean Grad 1.9 (<2mmHg) MV VTI 0.312 m Pulmonary Valve PV Vmax 0.80 (0.5-1.5 m/s) RVOT Vmax 0.54 m/s PV Peak Grad 2.6 mmHg RVOT Peak Gr. 1.2 mmHg PV Mean Karlos 0.64 m/s RVOT VTI 0.150 m PV Mean Grad 1.7 mmHg RVOT Mean Gr. 0.6 mmHg Tricuspid Valve RA Pressure 3.00 mmHg TR Vmax 2.25 m/s TV S' 0.12 m/s TR Peak Grad 20.3 mmHg RVSP (TR) 23.3 mmHg
== END ==
LOC: DI 02:01
PROVIDERS: PCP Family Medicine; Visit Provider Student in an Organized Health Care Education/Training Program
DX: I08.3 Combined rheumatic disorders of mitral, aortic and tricuspid valves (principal)
CPT/HCPCS: 93306

== ENCOUNTER 2025-01-18 12:38 | Outpatient (CLI) | payer MEDICARE, SELFPAY ==
--- NOTE | 2025-01-18 12:45 | RT.EKG_ITS ---
APPROVED REPORT Exam: Resting ECG Reason for Exam: New patient workup Patient Location: O HR:81 bpm ECG Measurements Heart Rate 81 AXIS IN 160 P 40 QRSd 142 QRS -67 QT 417 T 44 QTc 484 Conclusion Sinus rhythm...normal P axis, V-rate 50- 99 Multiple ventricular premature complexes...V complexes w/ short R-R intervls RBBB and LAFB...QRSd >120mS, axis(-40,240) Left ventricular hypertrophy...multiple voltage criteria Baseline wander in lead(s) II,III,aVF
== END 2025-01-18 12:39 | disposition home or self-care (01) ==
LOC: DI.CARD 12:48
PROVIDERS: PCP Family Medicine; Referring Provider Family Medicine; Visit Provider Internal Medicine Cardiovascular Disease
DX: I45.6 Pre-excitation syndrome (principal); I48.91 Unspecified atrial fibrillation; I35.0 Nonrheumatic aortic (valve) stenosis; I45.10 Unspecified right bundle-branch block; I44.4 Left anterior fascicular block
CPT/HCPCS: 93010

== ENCOUNTER → 2025-01-18 12:38 | Outpatient (BNVA) | payer MEDICARE, SELFPAY | PROVIDERS: PCP Family Medicine; Referring Provider Family Medicine; Visit Provider Internal Medicine Cardiovascular Disease | DX: I35.0 Nonrheumatic aortic (valve) stenosis (principal); I45.6 Pre-excitation syndrome; I47.10 Supraventricular tachycardia, unspecified; I48.91 Unspecified atrial fibrillation | CPT/HCPCS: 99215 ==